=== PATIENT | female | born 1955 | race African-American/Black ===

== ENCOUNTER 2019-08-13 16:40 | Observation (INO) ==
[2019-08-13] MEDS ORDERED: ANTIVERT PO ONE (17:03)
[2019-08-13] MEDS ORDERED: ASPIRIN PO ONE (17:06)
--- NOTE | 2019-08-13 18:08 | EKG Report ---
Test Performed on : 08/13/2019 5:06:03 PM Test Reason : dizzy Blood Pressure : / mmHG Vent. Rate : 070 BPM Atrial Rate : 070 BPM P-R Int : 176 ms QRS Dur : 102 ms QT Int : 314 ms P-R-T Axes : 007 -09 023 degrees QTc Int : 339 ms Normal sinus rhythm. Inferior infarct , age undetermined Abnormal ECG No previous ECGs available Unconfirmed Result
--- NOTE | 2019-08-13 18:08 | Diag Imaging Result Doc PS360 ---
CT HEAD W/O CONTRAST - 08/13/2019 INDICATION: cva? TIA COMPARISON: None FINDINGS: The ventricles and sulci are normal in size and contour. No intracranial mass or hemorrhage. The skull is intact. The sinuses mastoids and middle ears are clear. IMPRESSION: Negative exam. This exam was performed using automated exposure control, adjustment of mA or kV according to patient size, and/or use of iterative reconstruction technique Electronically signed by Jared Reese 08/13/2019 6:05 PM
[2019-08-13 18:18] LABS: BASO# 0.03 X1000 (0.0-0.2); BASO% 0.6 % (0.0-0.8); EOS# 0.05 X1000 (0.0-0.7); EOS% 1.1 % (0.0-10.0); HEMATOCRIT 41.5 % (37.0-47.0); HEMOGLOBIN 13.6 g/dL (12.0-16.0); LYMPH# 1.45 X1000 (1.2-3.4); LYMPH% 31.3 % (20.5-51.1); MCH 27.1 PG (27-31); MCHC 32.8 g/dL (33-37); MCV 82.8 FL (81-99); MONO# 0.31 X1000 (0.11-0.59); MONO% 6.7 % (1.7-9.3); MPV 9.9 FL (7.4-10.4); NEUT% 60.3 % (42.2-75.2); PLT 321 X1000 (130-400); RBC 5.01 XMIL (4.2-5.4); RDW 14.8 % (11.5-14.5); WBC 4.64 X1000 (4.8-10.8)
[2019-08-13 18:51] LABS: AGAP 13; ALB/GLOB RATIO 1.5; ALBUMIN 4.3 g/dL (3.5-5.0); ALKALINE PHOSPHATASE 91 U/L (32-104); BUN 9 mg/dL (8-22); CALCIUM 9.5 mg/dL (8.8-10.2); CHLORIDE 103 mmol/L (98-107); COSMO 286; CREATININE 0.7 mg/dL (0.5-0.9); ESTIMATED GFR > 60; GLUCOSE 99 mg/dL (70-104); GOT 19 U/L (10-30); GPT 19 U/L (10-36); POTASSIUM 3.8 mmol/L (3.5-5.1); SODIUM 144 mmol/L (136-145); TCO2 28 mmol/L (25-35); TOTAL BILIRUBIN 0.22 mg/dL (0.20-1.00); TOTAL PROTEIN 7.1 g/dL (6.3-8.3)
[2019-08-13 19:11] LABS: URINE SOURCE CLEAN CATCH
[2019-08-13 19:13] LABS: BILIRUBIN URINE NEGATIVE (NEGATIVE); BLOOD URINE NEGATIVE (NEGATIVE); COLOR STRAW; GLUCOSE URINE NEGATIVE (NEGATIVE); KETONE URINE NEGATIVE (NEGATIVE); LEUKOCYTES URINE SMALL (NEGATIVE); NITRITE URINE NEGATIVE (NEGATIVE); PH URINE 7.5; PROTEIN URINE NEGATIVE (NEGATIVE); SP GRAVITY URINE 1.004; TURBIDITY URINE CLEAR (CLEAR); UROBILINOGEN URINE NORMAL (NORMAL)
[2019-08-13 19:14] LABS: UR EPITHELIAL CELLS <10 /HPF (<10); URINE BACTERIA NEGATIVE /HPF; URINE RBC <10 /HPF (<10); URINE WBC <10 /HPF (<10)
[2019-08-13] MEDS ORDERED: ZOFRAN IV PRN (21:52)
[2019-08-13] MEDS ORDERED: TYLENOL PO PRN (21:52)
[2019-08-13] MEDS: NS 1,000 ML IV SCH (22:33)
[2019-08-14] MEDS: NS 1,000 ML IV SCH (11:32)
--- NOTE | 2019-08-14 12:57 | Diag Imaging Result Doc PS360 ---
EXAM: MRI BRAIN W/O CONTRAST 08/13/2019 HISTORY: cva? TECHNIQUE: Sagittal and axial T1, axial T2, FLAIR, DWI and coronal gradient echo. COMMENT: There is no evidence of restricted diffusion. There is hyperostosis frontalis interna. There is no evidence of mass effect bleed or abnormal extra-axial fluid collection. There are no apparent changes since the previous study of 12/02/2010. IMPRESSION: No evidence of acute intracranial disease. Electronically signed by Eren Enriquez 08/14/2019 12:55 PM
[2019-08-14 15:28] VITALS: BP 120/58
--- NOTE | 2019-08-14 20:02 | HISTORY AND PHYSICAL ---
CHIEF COMPLAINT: Dizziness, vertigo associated with left arm weakness for the last 1 day. HISTORY OF PRESENT ILLNESS: She is a 63-year-old female who basically came to the ER last night with above symptoms. She had some weakness, and the ER physician called me and needs to be admitted for observation, rule out CVA. Upon examination, she denies any headache, vision problems, slightly vertigo and dizziness. No tinnitus. No speech impediments, and neurological exam is intact. Basically admitted to the hospital for observation. The patient was seen in my office on 01/05/2019. PAST MEDICAL HISTORY: Allergic rhinitis, metabolic syndrome, hypertension. PAST SURGICAL HISTORY: Right knee arthroscopy, partial hysterectomy. MEDICATIONS: Hydrochlorothiazide 25 mg daily. ALLERGIES: Not known. SOCIAL HISTORY: Working for [employer]. No smoking. No alcohol. Single. No children. Living in [place]. FAMILY HISTORY: Father of stroke at 85. Mom of ovarian cancer at 49. Three brothers had hypertension, prostate cancer, diabetes, heart attacks. HEALTH MAINTENANCE: Flu vaccine 2017, mammography [address] Coreas as well as Pap smear, colonoscopy [address] Rose. PHYSICAL EXAMINATION: VITAL SIGNS: Temperature is 98 degrees, pulse 78, blood pressure 120/58, oxygen saturation on room air at 94%. HEENT: Atraumatic, normocephalic. Pupils equal, react to light. TMs are normal. Nose and throat within normal limits. NECK: Supple. No lymphadenopathy. CHEST: Bilateral air entry. HEART: Sounds are regular. No murmur. Belly is soft, nontender. Good bowel sounds. EXTREMITIES: No peripheral edema or cyanosis. NEUROLOGICAL: No obvious neurological deficits noted. Speech is normal. No cerebellar signs. INVESTIGATIONS: CBC is normal. SMA 7 is normal. LFTs are normal. Cardiac enzymes are normal. TSH is normal. Urinalysis is clear, and CT head negative. ASSESSMENT AND PLAN: A 63-year-old female admitted to the hospital with some dizziness, vertigo and left arm weakness, no cerebellar signs and admitted for observation, IV fluids. We will check the MRI of the brain. Continue neurological checks. If he is stable after MRI, we will discharge in the morning and reconcile home medications. cc: Mesfin Padilla MD
--- NOTE | 2019-08-14 20:04 | DISCHARGE SUMMARY ---
ADMISSION DATE: 08/13/2019 DISCHARGE DATE: 08/14/2019 DISCHARGING DIAGNOSIS: Dizziness, vertigo, probably benign positional vertigo. SECONDARY DIAGNOSES: 1. Metabolic syndrome. 2. Hypertension. BRIEF HISTORY: Please see the H and P that was done. In brief, she is a 63-year-old female who came in with dizziness, vertigo, left arm weakness and tingling and numbness. Clinically, I did not find any cerebellar signs. Followup MRI was negative. Findings were reassuring. Laboratory workup was essentially unremarkable findings, and patient was discharged home in a stable condition. Follow up in my office next week and continue hydrochlorothiazide 25 mg daily. The patient had annual exam done in December 2018. Continue diet and exercise and patient was discharged home in stable condition. cc: Mesfin Padilla MD
== END 2019-08-14 18:43 | disposition home or self-care (01) ==
LOC: ED 16:40 → INTOOBSV 19:49 → 3N 19:49
PROVIDERS: ADMIT Internal Medicine; ATTEND Internal Medicine